=== PATIENT | female | born 2000 | race Caucasian/White ===

== ENCOUNTER 2020-09-05 21:15 | Outpatient (CLI) | payer OTHER ==
[~2020-09-05 21:15] MED LIST: CEFUROXIME500 MG PO; IBUPROFEN600 MG PO; KEFLEX CAP 500500 MG PO; PHENERGAN 25 MG25 M1 PO
== END 2020-09-05 22:48 | disposition home or self-care (01) ==
LOC: GENOP 21:15
DX: O99.891 Other specified diseases and conditions complicating pregnancy (principal); N89.8 Other specified noninflammatory disorders of vagina; R10.9 Unspecified abdominal pain; Z3A.36 36 weeks gestation of pregnancy
CPT/HCPCS: 83518; G0463

== ENCOUNTER 2020-09-18 18:49 | Outpatient (CLI) | payer OTHER | END 2020-09-18 23:21 | disposition home or self-care (01) | LOC: GENOP 18:49 | DX: O62.4 Hypertonic, incoordinate, and prolonged uterine contractions (principal); Z3A.39 39 weeks gestation of pregnancy | CPT/HCPCS: 81001; 96361; 96367; 96374; J0696; J2405; J2550 ==

== ENCOUNTER 2020-09-20 16:55 | Inpatient (IN) | payer OTHER ==
[2020-09-20 18:05] LABS: RED BLOOD COUNT 3.45 M/UL (4.00-5.10); WHITE BLOOD COUNT 12.4 K/UL (4.5-11.0)
[2020-09-22 05:51] LABS: HEMOGLOBIN 9.9 gm/dl (12.3-15.3)
[2020-09-23] MEDS ORDERED: COLACE 100MG C100 MG PO (09:39)
[2020-09-23] MEDS ORDERED: IBUPROFEN600 MG PO (09:39)
[2020-09-23] MEDS ORDERED: HYDROCODON-ACE1 EAC6 PO (09:39)
== END 2020-09-23 14:02 | disposition home or self-care (01) | DRG 788 ==
LOC: GENOP 16:55 → OB 16:56 → GENOP 17:35 → OB 09-21 00:05 → GENOP 09-21 00:06 → OB 09-21 05:12
PROVIDERS: ADMIT Obstetrics & Gynecology
PROC: 0U7C7ZZ Dilation of Cervix, Via Natural or Artificial Opening (ICD-10-PCS; 2020-09-21)
PROC: 10907ZC Drainage of Amniotic Fluid, Therapeutic from Products of Conception, Via Natural or Artificial Opening (ICD-10-PCS; 2020-09-21)
PROC: 3E033VJ Introduction of Other Hormone into Peripheral Vein, Percutaneous Approach (ICD-10-PCS; 2020-09-21)
PROC: 10D00Z1 Extraction of Products of Conception, Low, Open Approach (ICD-10-PCS; principal; 2020-09-21 20:49)
DX: O99.844 Bariatric surgery status complicating childbirth (principal); Z37.0 Single live birth; Z20.822 Contact with and (suspected) exposure to COVID-19; O76 Abnormality in fetal heart rate and rhythm complicating labor and delivery; O62.1 Secondary uterine inertia; Z3A.39 39 weeks gestation of pregnancy; O99.214 Obesity complicating childbirth; E66.8 Other obesity; Z91.040 Latex allergy status
CPT/HCPCS: 36415; 81001; 82800; 85014; 85018; 85025; 90471; 90715; 96361; 96367; 96374; C9113; J0690; J0696; J1200; J1885; J2001; J2210; J2250; J2274; J2405; J2550; J2590; J2795; J3010; J7120; U0002